=== PATIENT | female | born 1985 ===

== ENCOUNTER 2022-06-09 15:53 | Inpatient (IN) | payer OTHER ==
[~2022-06-09] VITALS: Ht 170.2 cm; Wt 97.5 kg
== END 2022-06-18 13:34 | disposition home or self-care (01) | DRG 743 ==
LOC: O/R 06-16 04:20 → SURH 06-16 07:00 → OB/GYN 06-16 11:29
PROVIDERS: ADMIT Obstetrics & Gynecology; ATTEND Obstetrics & Gynecology
PROC: 0UT60ZZ Resection of Left Fallopian Tube, Open Approach (ICD-10-PCS; 2022-06-16)
PROC: 0UT10ZZ Resection of Left Ovary, Open Approach (ICD-10-PCS; 2022-06-16)
PROC: 0DNU0ZZ Release Omentum, Open Approach (ICD-10-PCS; 2022-06-16)
PROC: 0TNB0ZZ Release Bladder, Open Approach (ICD-10-PCS; 2022-06-16)
PROC: 0UN10ZZ Release Left Ovary, Open Approach (ICD-10-PCS; 2022-06-16)
PROC: 0DN80ZZ Release Small Intestine, Open Approach (ICD-10-PCS; 2022-06-16)
PROC: 0UT90ZZ Resection of Uterus, Open Approach (ICD-10-PCS; principal; 2022-06-16 07:00)
DX: N72 Inflammatory disease of cervix uteri (principal); N73.6 Female pelvic peritoneal adhesions (postinfective); N83.12 Corpus luteum cyst of left ovary; N83.02 Follicular cyst of left ovary; Z20.822 Contact with and (suspected) exposure to COVID-19